=== PATIENT | female | born 1985 | race Caucasian/White ===

== ENCOUNTER 2017-06-06 09:45 | Emergency (ER) | payer OTHER ==
[~2017-06-06] VITALS: Ht 170.2 cm; Wt 90.7 kg
[2017-06-06] MEDS ORDERED: PANTOPRAZOLE SO40 MG PO (12:16)
[2017-06-06] MEDS ORDERED: CLONIDINE HCL0.1 MG PO (12:16)
[2017-06-06] MEDS ORDERED: CHLORDIAZEPOXID25 MG PO (12:16)
== END 2017-06-06 12:40 | disposition home or self-care (01) ==
LOC: ED 09:45
DX: K29.20 Alcoholic gastritis without bleeding (principal); F10.10 Alcohol abuse, uncomplicated; I10 Essential (primary) hypertension; F17.200 Nicotine dependence, unspecified, uncomplicated; Z88.5 Allergy status to narcotic agent
CPT/HCPCS: 80053; 83690; 84703; 85025; 96374; 96375; 99284; G0480; J1885; J2060; J3411; J7030; J7042

== ENCOUNTER 2017-07-12 19:59 | Emergency (ER) | payer OTHER ==
[~2017-07-12] VITALS: Ht 170.2 cm; Wt 90.7 kg
[~2017-07-12 19:59] MED LIST: CHLORDIAZEPOXID25 MG PO; CLONIDINE HCL0.1 MG PO; PANTOPRAZOLE SO40 MG PO
== END 2017-07-12 23:33 | disposition home or self-care (01) ==
LOC: ED 19:59
DX: R56.9 Unspecified convulsions (principal); F10.10 Alcohol abuse, uncomplicated; Y90.1 Blood alcohol level of 20-39 mg/100 ml; F17.200 Nicotine dependence, unspecified, uncomplicated; Z98.84 Bariatric surgery status; Z88.5 Allergy status to narcotic agent; Z79.899 Other long term (current) drug therapy
CPT/HCPCS: 70450; 80053; 81001; 84703; 85025; 99284; G0480

== ENCOUNTER 2018-11-30 12:55 | Emergency (ER) | payer OTHER ==
[~2018-11-30] VITALS: Ht 170.2 cm; Wt 104.3 kg
--- OUTSIDE RECORDS SUMMARY | ~2018-11-30 | XMS | Clinical Summary ---
Demographics + + + | Address | [address] | | | [place] [address] | + + + | Home Phone | | + + + | Preferred Language | Unknown | + + + | Marital Status | Single | + + + | Anabaptism Affiliation | Unknown | + + + | Race | Unknown | + + + | Ethnic Group | Unknown | + + + Author + + + | Author | [facility] | + + + | Organization | [facility] | + + + | Address | Unknown | + + + | Phone | Unavailable | + + + Care Team Providers + +------+ + | Care Pipe Turner Name | Role | Phone | + +------+ + PP | Unavailable | + +------+ + Allergies Not on File Current Medications Not on file Active Problems Not on file Social History + +-------+ +--------+------+ | Tobacco Use | Types | Packs/Day | Years | Date | | | | | Used | | + +-------+ +--------+------+ | Never Assessed | | | | | + +-------+ +--------+------+ + + + | Sex Assigned at | Date Recorded | | | | + + + | Not on file | | + + + Plan of Treatment + + + + + | Health Maintenance | Due Date | Last Done | Comments | + + + + + | Vaccine: | | | | | Dtap/Tdap/Td (1 - | 4 | | | | Tdap) | | | | + + + + + | Cervical Cancer | | | | | Screening (Pap) | 5 | | | + + + + + | Vaccine: Influenza | | | | | (Season Ended) | 9 | | | + + + + + Results Not on filefrom Last 3 Months Insurance + +--------+ +------+-------+ + | Payer | Benefi | Subscriber | Type | Phone | Address | | | t Plan | ID | | | | | | / | | | | | | | Group | | | | | + +--------+ +------+-------+ + | MEDICAID | [employer] | [id number] | | | [address] | | | N | | | | [place] | | | [place] | | | | [phone] | | | 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
--- OUTSIDE RECORDS SUMMARY | ~2018-11-30 | XMS | Clinical Summary ---
Demographics + + + | Address | [address] | | | [place] [address] | + + + | Home Phone | | + + + | Preferred Language | Unknown | + + + | Marital Status | Single | + + + | Temple Affiliation | Unknown | + + + | Race | Unknown | + + + | Ethnic Group | Unknown | + + + Author + + + | Author | [facility] | + + + | Organization | [facility] | + + + | Address | Unknown | + + + | Phone | Unavailable | + + + Care Team Providers + +------+ + | Care Time Study Clerk Name | Role | Phone | + [...] +------+-------+ + | MEDICAID | [employer] | [id number] | | | [address] | | | N | | | | [place] | | | [place] | | | | [phone] | | | 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
[2018-11-30] MEDS ORDERED: LEVOTHYROXINE100 MCG PO (15:05)
[2018-11-30] MEDS ORDERED: VITAMIN B-12100 MCG PO (15:06)
[2018-11-30] MEDS ORDERED: VERAPAMIL ER P100 MG PO (15:07)
[2018-11-30] MEDS ORDERED: KEPPRA500 MG PO (15:50)
== END 2018-11-30 16:00 | disposition home or self-care (01) ==
LOC: ED 12:55
DX: R56.9 Unspecified convulsions (principal); K72.90 Hepatic failure, unspecified without coma; I10 Essential (primary) hypertension; F17.200 Nicotine dependence, unspecified, uncomplicated; Z98.84 Bariatric surgery status; Z88.5 Allergy status to narcotic agent; Z79.899 Other long term (current) drug therapy
CPT/HCPCS: 99284

== ENCOUNTER 2019-03-30 12:06 | Emergency (ER) | payer OTHER ==
[~2019-03-30] VITALS: Ht 167.6 cm; Wt 99.8 kg
[~2019-03-30 12:06] MED LIST changes: +KEPPRA500 MG PO; +LEVOTHYROXINE100 MCG PO; +VERAPAMIL ER P100 MG PO; +VITAMIN B-12100 MCG PO
[2019-03-30] MEDS ORDERED: NORCO 7.5-3251 EACH PO (15:11)
[2019-03-30] MEDS ORDERED: ONDANSETRON ODT8 MG PO (15:11)
[2019-03-30] MEDS ORDERED: CLEOCIN HCL300 MG PO (15:11)
== END 2019-03-30 15:31 | disposition home or self-care (01) ==
LOC: ED 12:06
DX: L03.211 Cellulitis of face (principal); I10 Essential (primary) hypertension; F17.200 Nicotine dependence, unspecified, uncomplicated; Z88.5 Allergy status to narcotic agent; Z91.018 Allergy to other foods; Z79.899 Other long term (current) drug therapy
CPT/HCPCS: 70487; 80053; 84703; 85025; 99284-25; J1170; J1885; J3490; J7040; Q9967

== ENCOUNTER 2021-04-23 16:38 | Inpatient (IN) | payer BC ==
[~2021-04-23] VITALS: Ht 167.6 cm; Wt 94.8 kg
[~2021-04-23 16:38] MED LIST changes: +CLEOCIN HCL300 MG PO; +NORCO 7.5-3251 EACH PO; +ONDANSETRON ODT8 MG PO
[2021-04-23] MEDS ORDERED: LISINOPRIL2.5 MG PO (18:04)
--- NOTE | 2021-04-23 22:15 | NUR ---
REPORT RECEIVED FROM MUNIRA RAE ABOUT PATIENT PRIOR TO HER COMING FROM ER.
--- NOTE | 2021-04-23 23:33 | NUR ---
PT REQUESTING PAIN MED FOR HER ABDOMINAL AND BACK PAIN, 03/09 DENIES NAUSEA. MEDICATED WITH DILAUDID 0.5 MG IV
--- NOTE | 2021-04-24 00:05 | NUR ---
PT'S HERE AT BEDSIDE. HE IS TAKING PATIENT'S MEDICATIONS AND OTHER BELONGINGS HOME. PT REPORTING HER ABDOMINAL PAIN "SOMEWHAT" IMPROVED. STARTED ADDITIONAL IV TO PATIEN'T LEFT HAND, 20 G X 1 ATTEMPT. REMINDED PATIENT SHE IS NPO ONLY SIPS WITH ORAL MEDS AND MOUTH SWABS. VERBALIZED UNDERSTANDING. CALL LIGHT IN REACH. WATCHING TV.
--- NOTE | 2021-04-24 01:06 | NUR ---
ANSWERED PATIENT'S CALL LIGHT SHE NEEDS TO VOID. SHE AMBULATED TO RESTROOM ON HER OWN, VOIDED 900 ML DARK FROTHY URINE. PATIENT BACK TO BE NOTICE HER HANDS ARE SHAKING MORE THAN THEY HAVE ALSO REPORTING HER HEADACHE HAS GOTTEN WORSE. MEDICATED PATIENT WITH 2 MG ATIVAN IV, SEE EMAR FOR CIWA PROTOCOL. PATIENT IS DENYING FEELING NAUSEATED BUT STATES "THIS IS USUALLY WHEN I WOULD HAVE A DRINK"
--- NOTE | 2021-04-24 01:35 | NUR ---
pt not exhibiting any tremors at this time but is asking for more pain meds for her abdominal pain 01/07. some nausea. medicated with zofran 4mg IV and dilaudid 1 mg IV. no other needs at this time. Spouse remains at bedside.
--- NOTE | 2021-04-24 02:26 | NUR ---
PT APPEARS TO BE RESTING, LAYING ON HER RIGHT SIDE. SPOUSE AT BEDSIDE. CAN SEE NO VISIBLE TREMORS.
--- NOTE | 2021-04-24 03:53 | NUR ---
PATIENT ASSESSMENT COMPLETE. PATIENT STATING HER ABDOMINAL PAIN HAS COME BACK TO A "6" DENIES NAUSEA AT THIS TIME. MEDICATED PATIENT WITH DILAUDID 1 MG IV. LR AT 200ML/HR COMPLETE NEW BAG HUNG AT 150ML/HR. SPOUSE STILL IN ROOM. CALL LIGHT IN REACH. REINFORCED NEED TO STAY NPO AT THIS TIME EXCEPT FOR ORAL SWABS OR SIPS WITH ORAL MEDS ONLY AT THIS TIME. NO TREMORS NOTED, IMPROVED HEADACHE. PT PLAYING ON HER PHONE.
--- NOTE | 2021-04-24 05:36 | NUR ---
pt REQUESTED PRN PAIN MEDICATION FOR 02/06. GIVEN (SEE MAR). pt REQUESTED SOMETHING TO DRINK EDUCATION DONE ON TREATMENT PLAN. CALL LIGHT WITHIN REACH.
--- NOTE | 2021-04-24 06:55 | NUR ---
CALL LIGHT ON. pt UP TO VOID AND BACK TO BED. 1PA, VERY SHAKY. CALL LIGHT WITHIN REACH. UNMEASURED VOID, DARK YELLOW URINE
--- NOTE | 2021-04-24 07:00 | NUR ---
REPORT RECEIVED. PT LYING IN BED WITH AT BEDSIDE. CALL LIGHT IN REACH.
[2021-04-24] MEDS ORDERED: LISINOPRIL-HCT1 EACH PO (10:07)
[2021-04-24] MEDS ORDERED: VERAPAMIL ER120 M1 PO (10:08)
[2021-04-24] MEDS ORDERED: LEVOTHYROXINE137 MCG PO (10:08)
[2021-04-24] MEDS ORDERED: IRON325 M1 PO (10:31)
[2021-04-24] MEDS ORDERED: POTASSIUM GLUCO99 MG PO (10:31)
--- NOTE | 2021-04-24 10:31 | NUR ---
MED REC COMPLETE
--- NOTE | 2021-04-24 11:04 | NUR ---
ASSESSMENT COMPLETED AND MEDICATIONS GIVEN. CIWA OF 15 AT THIS TIME. 2 MG ATIVAN ADMINSTERED. PT REPORTS PAIN IN ABDOMEN OF 6/10 AND REQUEST PAIN MEDICATION. 1MG DILAUDID GIVEN. BOWEL TONES HYPOACTIVE. PAIN IS IN RUQ AND RADIATING. LUNGS CLEAR. PT IS NPO SIP OF WATER PROVIDED WITH MEDICAITON.
--- NOTE | 2021-04-24 11:31 | NUR ---
AMBULATED TO BATHROOM. VOIDED 100ML. BACK TO BED. WANTING TO EAT FOOD. PAIN WELL MANAGED. CALL LIGHT IN REACH.
--- NOTE | 2021-04-24 12:40 | NUR ---
PT ANXIOUS IN ROOM AND REPORTING PAIN. CIWA IS 14. 2MG IV ATIVAN AND ORAL OXYCODONE ADMISNTERED. PT SITTING IN BED NOW.
--- NOTE | 2021-04-24 14:25 | NUR ---
PT REQUESTING WALK. AMBULATED IN CCU UNIT FROM ONE END TO OTHER. PT REPORTING ANXIETY AND WANTS TO LEAVE. EXPRESSES DESIRE TO LEAVE TODAY. SAYS SHE HOPES HER COMES TO TAKE HER HOME. DISCUSSED WITH PT REASONS SHE DOESN'T WANT TO STAY. SHE FEELS SHE CAN MANAGE THIS AT HOME. EDUCATION ON PLAN OF CARE AND REASON FOR ADMISSION DONE WITH PT. PT REPORTS NEED TO STAY ADMITTED NOW AND IS AGREEABLE TO TREATMENTS AND PLAN OF CARE. CIWA AT 15 AT THIS TIME. INCREASED ATIVAN TO 3MG. PT DRINGING CLEARS AND TOLERATING WELL W/O INCREASE IN PAIN OR NAUSEA.
--- NOTE | 2021-04-24 16:30 | NUR ---
ASSESSMENT DONE. CONTINUES TO C/O PAIN IN LOWER ABD. UP TO BR TO VOID CONCENTRATED URINE. PATIENT MISSED THE MEASURING DEVICE WHEN UPON VOIDING.
--- NOTE | 2021-04-24 16:50 | NUR ---
LR BOLUS OF 500 ML OVER ONE HOUR INFUSING.
--- NOTE | 2021-04-24 17:00 | NUR ---
LAB CALLED WITH GRAM NEGATIVE RODS IN BLOOD CULTURES. DR LANDA CALLED AND NOTIFIED. ORDERS TO START ZOSYN 3.375 Q8H AND RE-DRAW BLOOD CULTURES IN THE MORNING. NOTIFIED ALSO OF LOW URINE OUTPUT. ORDERS TO ADMISNTER 500ML LR BOLUS OVER ONE HOUR.
--- NOTE | 2021-04-24 17:20 | NUR ---
dilaudid 1 mg iv given for pain in lower abd and headache. paittient educated on abx. is anxious and tearful
--- NOTE | 2021-04-24 17:35 | NUR ---
ATIVAN 4 MG PO GIVEN FOR INCREASED ANXIETY. REMAINS TEARFUL. SOMEWHAT SHAKEY. IS IN ROOM.
--- NOTE | 2021-04-24 18:11 | NUR ---
LR BOLU OF 500 ML COMPLETED.
--- NOTE | 2021-04-24 18:39 | NUR ---
PT SLEEPING IN BED. AT BEDSIDE.
--- NOTE | 2021-04-24 19:24 | NUR ---
RECEIVED REPORT FROM DAYSHIFT NURSES ABOUT PTIENT. SHE HAS HAD INCRREASED CIWA SCORES TODAY AND HAS RECEIVED ATIVAN MULTIPLE DOSES, AND DILAUDID FOR PAIN. NO NAUSEA, UPGRADED TO CLEAR LIQUID DIET, HAS BEEN DRINKING PO FLUIDS WELL. HAD AN UNMEASURED VOID PER DAYSHIFT AND 100 ML THIS AM. PT RESTING ON BED ASKING FOR SADA.
--- NOTE | 2021-04-24 20:23 | NUR ---
PATIENT ASSESSMENT COMLPETE. CIWA SCORE COMPLETE. PATIENT CONTINUES TO RATE HER ABDOMINAL PAIN ABOUT A "6" DENIES NAUSEA AT THIS TIME. PATIENT MEDICATED WITH ADDITIONAL DILAUDID AND MORE PO ATIVAN, CONTINUES TO REPORT A "NAGGING" HEADACHE AND " STARTLING" DREAMS WHEN FALLING ASLEEP. SPOUSE AT BEDSIDE. ENCOURAGE PT TO TAKE SIPS OF WATER. PT ATE TWO JELLOS.
--- NOTE | 2021-04-24 22:00 | NUR ---
CHECKED ON PATIENT. STARTED HER ZOSYN. PT IS ASLEEP LAYING ON HER LEFT SIDE HED OF BED ABOUT 45 DEGREES. HUSNABND AT BEDSIDE. NO VISIBLE OR PALPABLE TREMORS NOTED, RESPIRATINS EVEN UNLABORED SATS > 93% ON RA.
--- NOTE | 2021-04-25 00:13 | NUR ---
ANSWERED PT CALL LIGHT. PT NEEDED TO USE TOILET, STANDY ASSISTED PATIENT TO TOILET. SHE VOIDED LARGE AMOUNT OF DARK URINE. PATIENT HAS NO VISIBLE SHAKES BUT STATES SHE "CAN FEEL THEM" CONTUNUES TO HAVE SAME HEADACHE. PATIENT IS BACK IN BED CALL LIGHT IN REACH. SPOUSE HAS GONE HOME. MAINTEANCE FLUIDS AND ZOSYN INFUSING. PT GIVEN MORE BEEF BROTH PER HER REQUEST.
--- NOTE | 2021-04-25 00:26 | NUR ---
PATIENT ASSESSMENT COMPLETE. PT HAS BEEN GIVEN CUP OF BROTH PER HER REQUEST. PT GIVEN 1 MG ATIVAN PO CIWA SCORE 8. MEDICATED WITH 1 MG DILAUDID FOR HER ONGOING UPPER ABDOMINAL AREA PAIN. DENIES ANY OTHER NEEDS OR REQUESTS AT THIS TIME. CALL LIGHT IS IN REACH. REINFORCED TO PATIENT TO USE CALL LIGHT IF SHE NEEDS ANYTHING AND NOT TO GET UP OF BED WITHOUT STAFF IN THERE FOR STANDBY ASSIST. VERBALIZED UNDERSTANDING.
--- NOTE | 2021-04-25 01:44 | NUR ---
ROUNDED ON pt. RESTING IN BED WITH EYES CLOSED, RESPIRATIONS REGULAR RATE 18. O2 SAT 97%. CALL LIGHT WITHIN REACH.
--- NOTE | 2021-04-25 06:30 | NUR ---
IN ROOM TO CHECK ON PT AND START HER ZOSYN, SHE NEED ED TO GET UP TO VOID. PT AMBULATED TO TOILET WITH SBA ONLY, PT'S HR WENT UP TO THE 110'S. PT IS ALSO REPORTING HER NAUSEA HAS COME BACK AND HER ABDOMINAL PAIN IS WORSE, HEADACHE STILL ABOUT THE SAME. PT HAS BEEN SIPPING FLUIDS NO EMESIS. VOIDED 600 ML FROTHY DARK URINE. PT MEDICATED FOR HER PAIN AND NAUSE WELL FOR HER CIWA, SEE EMAR.
--- NOTE | 2021-04-25 07:55 | NUR ---
INTO PT ROOM. PT IS AWAKE AND ALERT. PT REQUESTS ATIVAN FOR ANXIETY. PT STATES THAT SHE WANTS TO GO HOME SOON POSSIBLE. EDUCATED PT ON IMPORTANCE OF FOLLOWING 'S ADVICE FOR MEDICAL MANAGEMENT. PT IS WILLING TO LISTEN TO THIS, BUT REMAINS ADIMANT ABOUT GOING HOME. VITALS ARE WNL, PT IS 98% ON 1L O2 VIA NASAL CANULA WITH ONLY ONE PRONG IN HER NARE. PT THEN PLACED ON ROOM AIR, O2 SATS REMAIN 95% OR BETTER.
--- NOTE | 2021-04-25 08:25 | NUR ---
LAB IN THE ROOM TO DRAW SECOND SET OF BLOOD CULTURES. PT IS CALM AND COOPERATIVE. 4 MG PO ATIVAN GIVEN FOR REPORTED ANXIEY. PT IS ABLE TO EASILY SWALLOW PO MEDS. PT UP OUT OF BED AND AMBULATES TO THE BATHROOM WITH STANDBY ASSIST, THEN IS ABLE TO BRUSH OWN TEETH AND WASH FACE INDEPENDENTLY. ALL LINENS CHANGED ON THE BED. PT OUT OF BATH ROOM AND SITTING UP IN THE CHAIR FOR CLEAR LIQUID BREAKFAST.
--- NOTE | 2021-04-25 10:25 | NUR ---
pt up and ambulated to the bathroom, slightly unsteady with activity, standby assist. pt voids small amount 125 ml, then back to bed. pt reports that her anxiety is tollerable at this time. pt denies need for pain medication at this time.
--- NOTE | 2021-04-25 14:55 | NUR ---
pt up and out of bed on her own, voided into the garbage can, and leaked large amount onto the floor and on her socks and underwear. this rn entered the room to find her standing and holding on to the shink, pt states "i had to go pee". assisted pt back to bed as she is very shaky on her feet. assisted pt to clean up, clean pull up attend in place. bed alarm is now on the pt. pt is cooperative and polite.
--- NOTE | 2021-04-25 19:09 | NUR ---
PT CIWA SCORES HAVE BEEN SLOWLY ELEVATING THROUGHOUT THE SHIFT, LAST CIWA IS 21. PT REMAINS COOPERATIVE AND POLITE, REPORTS HEARING VOICES AND FEELS LIKE BUGS ARE CRAWLING ON HER SKIN. PT ASKS THROUGH OUT THE DAY IF SHE CAN GO HOME, PT QUICKLY FORGETS THE PLAN OF CARE, FREQUENT REMINDERS GIVEN. PT IS DISORIENTED TO TIME. ALL VITALS WNL EXCEPT FOR ELEVATED BP, AND ELEVATED HR WITH AMBULATION. PT SPOUSE IS AT THE BEDSIDE SINCE 1835 TO EAT DINNER WITH HER. PT NOT ABLE TO RELAX OR STOP FIDGETING IN HER BED. PT FORGETS TO CALL FOR HELP TO GET UP OUT OF BED, BED ALARM HAS BEEN ON SINCE ABOUT 1345. SPEECH HAS BECOME MORE AND MORE DIFFICULT TO UNDERSTAND, AND PT SOMETIMES USES INAPROPRIATE WORDS. BOTH IV SITES REMAIN INTACT, FLUSH EASILY, PT DENIES PAIN AT EITHER SITE. PT DENIES CHEST PAIN AND SOB ALL SHIFT.
--- NOTE | 2021-04-25 19:42 | NUR ---
RECEIVED REPORT FROM DAY SHIFT NURSES. PATIENT HAD A GOOD MORNING BUT TOWARD AFTERNOON WAS ANXIOUS AND WANTING TO GO HOME, HER CIWA SCORES INCREASE IN AFTERNOON, ACTED SLIGHTLY CONFUSE WITH HER WORSE, SHE WAS GIVEN PO AND IV ATIVAN 4MG EACH X TIMES. PATIENT AT SHIFT CHANGE APPEARS MORE RELAXED, EXHIBITS PLEASANT DEMEANOR AND IS WATCHIING TV WITH SPOUSE.
--- NOTE | 2021-04-25 21:14 | NUR ---
pt was in a deep sleep when this rn went in to give her Keppra and the benadryl she requested for sleep. pt was not waking up to verbal commands, had to push on her with painful stimuli, then she wakes up and is wanting out of bed mumbling incomprehensible. pt instructed to stay in bed. benadryl and melatonin not given. pt's in room
--- NOTE | 2021-04-25 21:31 | NUR ---
PT AWAKE REQUESTING TO VOID HAVE TO REINFORCE TO PT SHE IS NOT TO GET OUT OF BED WITHOUT ASSISTANCE. PT AMBULATED TO TOILET WITH STANDBY ASSIST A LITTLE UNSTEADY GAIT BUT PATIENT VOIDED 650 ML WENT BACK TO BED. AT BEDSIDE
--- NOTE | 2021-04-25 21:44 | NUR ---
PT AWAKE AND HAS DECIDED SHE WOULD LIKE TO TAKE THE BENADRYL AND MELATONIN. PT'S ZOSYN STARTED. ALSO PT IS WEATY AND FEELS SHAKEY 2 MG ATIVAN GIVEN IV.
--- NOTE | 2021-04-26 00:08 | NUR ---
ANSWERED CALL LIGHT. PATIENT NEEDED TO VOID. STANDBY ASSIST FOR PATIENT TO AMBULATE WITH SLIGHTLY UNSTEADY GAIT TO BATHROOM. VOIDED 350 ML. BACK TO BED PT IS REPORTING HER HEADACHE IS "THE SAME" AND "SLIGHT" NUASEA" PT FEELS A LITTLE CLAMMY. PATIENT IS MUMBLING ABOUT THE "PLAN FOR THE DAY" AND IS APPEARING SOMEWHAT RESTLESS IN THE BED. SHE IS STATING "I SHOULD HAVE BEEN ASLEEP" PATIENT HAS BEEN GIVEN BENADRYL, MELATON, ATIVAN. CIWA 13 PT MEDICATED WITH ATIVAN 4MG IV.
--- NOTE | 2021-04-26 01:04 | NUR ---
PT GIVEN 4MG IV ATIVAN, 4MG PO ATIVAN CIWA 14. PT APPEARS TO BE GETTING MORE RESTLESS. CIWA 14
--- NOTE | 2021-04-26 01:16 | NUR ---
PT ASSESSMENT COMPLETE. PATIENT HAS BEEN MEDICATED WITH ADDITIONAL PPO AND IV ATIVAN FOR HER WITHDRAWL SYMPTOMS. PATIENT FRUSTRATED SHE STATES "I WANT TO GO HOME" "NEED TO GO HOME" NO LONGER IN ROOM. PT INFORMED SHE IS NOT IN ANY CONDITION TO GO HOME AND THEY WILL UPDATE HER PLAN OF CARE LATER TODAY, ENCOURAGED TO SLEEP..
--- NOTE | 2021-04-26 02:04 | NUR ---
MAGEN RN IN ROOM TO TOILET PT. SHE VOIDED 200 ML IN TOILET WITH HAT AND AMBULATED BACK TO BED, WHEN IV WAS HOOKED BACK UP IT WAS NOTED PT HAD PUFFY LEFT HAND, IV SITE ASSESSED TO LEFT HAND AND IT WILL NOT FLUSH APPEARS INFILTRATED. IV REMOVED TIP INTACT BY MAGEN RN. REMOVED SEVERAL FASHION BRACELETS FROM PATIENT'S LEFT FOREARM DUE TO CONSTRICTION AND 3 RINGS FROM HER LEFT HAND. PLACED IN HER PURSE IN SPEC CUP. PT IS MOVING ALL HER DIGITS TO HER LEFT HAND SKIN IS WARM TO TOUCH CAP REFILL < 2 SECONDS TO NAIL BEDS. ELEVATED LEFT HAND ON PILLOW AND WARM BLANKET APPLIED TO SITE. IV ZOSYN SWITCHED TO LEFT AC IV.
--- NOTE | 2021-04-26 02:47 | NUR ---
PT NEEDING TO VOID GOT OUT OF BED HERSELF REINFORCED TO PT SHE NEEDS TO USE CALL LIGHT. PT VOIDED 120 ML URINE IN HAT.
--- NOTE | 2021-04-26 04:39 | NUR ---
PATIENT PROVIDED WITH PRN PAIN MEDS PER REQUEST AND ATIVAN PER PROTOCAL. PATIENT REPORTS 9/10 PAIN IN HER ABD.
--- NOTE | 2021-04-26 05:40 | NUR ---
IN TO START A NEW IV. pt WOKE TO VOICE. NEW IV STARTED, LABS DRAWN. WITH pt's PERMISSION CUT PERSONAL BRACELET ON LEFT WRIST IT WOULD NOT COME OFF OVER HAND AND WAS DIGGING INTO SKIN. NO REQUESTS AT THIS TIME. CALL LIGHT WITHIN REACH.
--- NOTE | 2021-04-26 07:59 | NUR ---
REPORT RECEIVED FROM NIGHTSHIFT RN, WILL CONTINUE PLAN OF CARE.
--- NOTE | 2021-04-26 08:14 | NUR ---
PATIENT ATEMPTING TO GET OUT OF BED ALONE, THIS COMMERCIAL SALES REPRESENTATIVE IN TO REDIRECT. PATIENT DISORIENTED TO PLACE INITIALLY, CLEARED AFTER A FEW MINUTES. 1PA TO BSC AND BACK TO BED. BREAKFAST ORDERED, 2CUPS OF FRESH ICE WTAER PROVIDED. RN IN ROOM. CALL LIGHT AND PERSONAL ITEMS IN REACH
--- NOTE | 2021-04-26 08:46 | NUR ---
THIS RN IN TO ASSESS PT AND ADMINISTER SCHEDULED MEDICATIONS. PT ALERT AND ORIENTED TO SELF, EVENT, LOCATION, BUT NOT MONTH. SCHEDULED MEDICATIONS ADMINISTERED AT THIS TIME (SEE SEP). PT CIWA WAS 8 AT THIS TIME FOR TREMBLING HANDS, NAUSEA, HEADACHE, AND NOT BEING ORIENTED TO MONTH, PRN ATIVAN ADMINISTERED (SEE SEP) ALONG WITH PRN OXYCODONE FOR HER HEADACHE AND ABDOMINAL PAIN 01/07 AND ZOFRAN FOR HER NAUSEA. IV ABX STILL INFUSING AT THIS TIME. RT IN AT THIS TIME TO ASSESS PT, THIS RN ASSESSED PT AFTERWARDS, BOWEL TONES ACTIVE, LUNGS CLEAR, RADIAL AND PEDAL PULSES STRONG. PT REPORTS NO FURTHER NEEDS AT THIS TIME AND IS EATING BREAKFAST NOW, WILL CONTINUE PLAN OF CARE. CALL LIGHT IN REACH, BED IN LOWEST POSITION.
--- NOTE | 2021-04-26 09:35 | NUR ---
THIS RN IN TO CHECK ON PT. PT EATING BREAKFAST AT THIS TIME. PT REPORTS HER ABDOMINAL PAIN, HEADACHE, AND NAUSEA HAVE RESOLVED AT THIS TIME. PT REPORTS NO NEEDS AT THIS TIME WHEN ASKED, IV STILL INFUSING AT THIS TIME. WILL CONTINUE PLAN OF CARE. CALL LIGHT IN REACH, BED IN LOWEST POSITION.
--- NOTE | 2021-04-26 09:55 | NUR ---
REPORT RECIEVED FROM BUTCH WALLACE.
--- NOTE | 2021-04-26 10:05 | NUR ---
REPORT GIVEN TO BUTCH TORREZ AT 0951. DR LANDA IN TO ASSESS PT AND UPDATE ON PLAN OF CARE DURING THIS TIME. PT INFORMED ON TRANSFER AFTERWARDS. PT AWAKE AND ALERT IN BED, IV ABX INFUSING. BUTCH TORREZ IN TO ASSIST WITH TRANSFER, PT ABLE TO GET UP AND ONTO BEDSIDE RECLINER WITHOUT DIFFICULTY. PT WAS TRANSFERRED TO ROOM 121 ALONG WITH HER BELONGINGS AT 1005. PT NOW IN MS 121, BUTCH TORREZ IN ROOM TO CONTINUE PLAN OF CARE.
--- NOTE | 2021-04-26 10:08 | NUR ---
Patient transferred to m/s via recliner, patient holding purse and personal belongings.
--- NOTE | 2021-04-26 10:43 | NUR ---
PATIENT MOVED FROM CCU AT 1000. PATIENT IS ORIENTED X3, ENDORSES HAVE ANXIETY AND GIVEN 4MG OF PO ATIVAN ALONG WITH KCL REPLACEMENT. PATIENT DENIES PAIN AT THIS TIME, HAS ORDERED LUNCH AND IS TALKING ON HER CELL PHONE. PATIENT IS SALINE LOCKED.
--- NOTE | 2021-04-26 11:57 | NUR ---
PATIENT IS RESTING IN BED, VISABLE LESS SHAKEY, IS WATCHING TV AND EATING IN BED.
--- NOTE | 2021-04-26 13:30 | NUR ---
PATIENT IS IN BED AND SLEEPING WITH REGULAR RESPIRATIONS.
--- NOTE | 2021-04-26 15:03 | NUR ---
PATIENT IS RESTING IN BED, HAVING ANXIETY AND VERBALIZES THE NEED FOR ANXIETY MEDICATION. MILD/MODERATE HAND TREMORS, SOME SLIGHT CONFUSION, PATIENT IS OTHERWISE ORIENTED AND REPORTS HER IS BRINGING HER DINNER TONIGHT. PATIENT CONTINUES TO DENY PAIN. IV ZOSYN INFUSING FOR 4 HOURS.
--- NOTE | 2021-04-26 17:46 | NUR ---
PATIENT HAS DONE WELL WITH SOLID FOOD TODAY, TAKING ORAL ATIVAN AND PO PAIN MEDICATIONS. PATIENT IS A STANDBY ASSIST TO BATHROOM. IV ZOSYN FOR ECOLI UTI. IN ROOM WITH PATIENT AND WATCHING TV.
--- NOTE | 2021-04-26 17:49 | NUR ---
Patient vitals, I&Os are complete. Visitor is in room. Patient talked with RN.
--- NOTE | 2021-04-26 19:30 | NUR ---
IV ANTIBIOTIC COMPLETE. REPORT RECEIVED FROM BUTCH TORREZ. pt ANXIOUS, REQUESTING TO LEAVE. DISCUSSED CARE PLAN. pt AGREEABLE TO STAY NIGHT FOR MEDICATIONS, ANTIBIOTICS. CALL LIGHT IN REACH.
--- NOTE | 2021-04-26 21:30 | NUR ---
PT OUT IN HALLWAY ASKING CLIMATE CHANGE ANALYST WHEN THE SOMEONE WAS GOING TO BE HERE SHE HAS BEEN "WAITING". PT REMINDED SHE IS STAYING THE NIGHT, SHE SAID SHE STAYED LAST NIGHT, REMINDED HER SHE WAS IN CCU, AND NOW ON THE MEDICAL FLOOR AND SHE WILL BE SEEN IN THE MORNING BY DR LANDA, AND HE WILL ADDRESS THE PLAN. SHE IS CONFUSED AND NOT REMEMBERING WHAT SHE HAS BEEN TOLD. MALE AT BEDSIDE, DID NOT OFFER ANY COMMUNICATION TO PT OR THIS RN THIS CONVERSATION CONTINUED.
--- NOTE | 2021-04-26 22:19 | NUR ---
pt SITTING UP AT SIDE OF BED. RATES PAIN 6/10 IN RIGHT UPPER ABD, DENIES NEED FOR PAIN MEDICATION "KEEP THAT BACK IF I CAN'T SLEEP". pt ANXIOUS REQUESTING TO LEAVE AFTER 4 HOUR ANTIBIOTIC INFUSION. EDUCATED pt ON PLAN OF CARE, NEXT SCHEDULED ANTIBIOTIC DOSE, pt AGAIN AGREEABLE TO HOSPITAL OVER NIGHT STAY. pt WITH MILD TREMORS, SOME VISUAL HALLUCINATIONS, ANXIETY, NOT ORIENTED TO DATE, EVENTS, CANNOT ADD SERIAL. REORIENTATION PROVIDED. PRN ATIVAN ADMINISTERED PO. IV SITES FLUSHED WNL, IV KEPPRA AND IV ANTIBIOTIC INFUSING ORDERED. VSS. ASSESSMENT COMPLETE. CIWA SCORE 7. CALL LIGHT IN REACH.
--- NOTE | 2021-04-27 00:14 | NUR ---
pt CALLING OUT, SBA TO RESTROOM FOR VOID AND BACK TO BED. UNMEASURED VOID, MISSED HAT. CALL LIGHT IN REACH. IV ANTIBIOTIC INFUSING WNL.
--- NOTE | 2021-04-27 02:30 | NUR ---
SAW PT OUT OF BED, MOVING IV POLE. ASKED PT IF SHE NEEDED HELP. GOING TO BATHROOM SHE SAID, NOTED LIQUID ON FLOOR, THOUGHT IT MAY HAVE BEEN HER IV, HOWEVER, IT WAS URINE, THE PT WAS URINATING ON THE FLOOR WHILE WALKING. PT WAS AWARE THIS WAS HAPPENING, ASSISTED PT TO SAFE AREA, PT ON TOILET, THIS RN CLEANNED UP FLOOR. ONCE BACK TO BED, PT WONDERED WHERE HER MALE FRIEND WAS, TOLD HER HE WENT HOME, AND SHE WAS STILL IN THE HOSPITAL. SHE WAS SURPRISED TO KNOW SHE WAS HERE. SAID SHE JUST WANTED TO SLEEP, WON'T YOU LET ME SLEEP. COVERED, BED ALARM PLACED FOR PT SAFETY.
--- NOTE | 2021-04-27 03:10 | NUR ---
pt BACK IN BED FROM RESTROOM. IV ANTIBIOTIC COMPLETE, SL WNL. CIWA SCORE 7. PRN ATIVAN ADMINISTERED. pt C/O 12/07 SOUZA. PRN TYLENOL ADMINISTERED. CALL LIGHT IN REACH. LIGHTS OFF IN ROOM.
--- NOTE | 2021-04-27 06:10 | NUR ---
pt SLEEPING, AWAKENS TO VOICE. IV ANTIBIOTIC INFUSING WNL ORDERED. pt COOPERATIVE, REQUESTING TO SLEEP. VS COMPLETE. DENIES ADDITIONAL NEEDS. EYES CLOSED, BREATHING UNLABORED. CALL LIGHT IN REACH. BED ALARM ON.
--- NOTE | 2021-04-27 07:27 | NUR ---
REPORT RECIEVED FROM BUTCH MEDINA.
--- NOTE | 2021-04-27 08:13 | NUR ---
Patient still sleeping. Updated white board. CHIEF DATA OFFICER will check back in on patient before breakfast.
--- NOTE | 2021-04-27 08:35 | NUR ---
PATIENT UP TO VOID TO BATHROOM, IMPROVED ON STEADY AMBULATION FROM YESTERDAY. PATIENT ABLE TO TELL ME DAY OF WEEK AND COUNT RELIABLY. MILD TREMOR IN HANDS, PATIENT EATS BREAKFAST, IS ALSO IMPROVED FROM YESTERDAY. PATIENT IS ASKING TO GO HOME TODAY, LET HER KNOW THAT THE DOCTOR WOULD BE IN TO SEE HER TO SEE IF SHE IS READY. PATIENT DENIES PAIN, HAS GOOD APPETITE.
--- NOTE | 2021-04-27 09:22 | NUR ---
MORNING MEDICATIONS GIVEN. PATIENT IS ORIENTED AND VISITING IN THE PHONE.
--- NOTE | 2021-04-27 09:37 | NUR ---
SPOKE WITH PATIENT IN ROOM. PATIENT ORIENTED. PATIENT LIVES WITH . DOES NOT DRIVE. IS EMPLOYED. WILL NEED CARERIDE HOME IF IT IS DURING HUSBANDS WORKING HOURS. ALSO FEELS SHE MAY NEED PAPERWORK FOR EMPLOYER. SHE DENIES USING ANY DME. HAS PCP AND PLANS TO F/U AND CONTINUE WITH HER. HAS TRANSPORTATION TO APPOINTMENTS. DOES NOT FEEL SHE IS AT RISK TO NOT BE ABLE TO PAY FOR MEDS/FOOD OR UTILITIES BEING SHUT OFF. DENIES CONCERNS AND FEELS SAFE TO RETURN HOME AT DISCHARGE. IS ASKING WHEN SHE WILL BE ABLE TO GO HOME, DISCUSSED THE DR WILL SEE HER AND THEY CAN DISCUSS. NO OTHER QUESTIONS. UPDATED STAFF SHE WILL NEED EMPLOYER NOTE AND CARERIDE.
--- NOTE | 2021-04-27 09:40 | NUR ---
Offered patient shower. Patient refused. BUTCH Arora notified.
--- NOTE | 2021-04-27 10:49 | NUR ---
PATIENT HAS COPY OF WORK RELEASE NOTE, INDICATED THAT HER BOSS HAS TAKEN HER OFF OF HER WORK SCHEDULE FOR THE REST OF THE WEEK.
--- NOTE | 2021-04-27 11:57 | NUR ---
PATIENT NOTIFIED THAT DR. LANDA WOULD BE IN TO SEE HER SOON.
--- NOTE | 2021-04-27 12:01 | NUR ---
DR. LANDA IN TO SEE PATIENT.
[2021-04-27] MEDS ORDERED: AUGMENTIN 875-1 EACH PO (12:06)
== END 2021-04-27 12:30 | disposition home or self-care (01) | DRG 439 ==
LOC: ED 16:38 → CCU 21:42 → MS 21:42
PROVIDERS: ADMIT Student in an Organized Health Care Education/Training Program; ATTEND Student in an Organized Health Care Education/Training Program
DX: K85.20 Alcohol induced acute pancreatitis without necrosis or infection (principal); F10.139 Alcohol abuse with withdrawal, unspecified; K86.2 Cyst of pancreas; F10.10 Alcohol abuse, uncomplicated; Z20.822 Contact with and (suspected) exposure to COVID-19; I10 Essential (primary) hypertension; F17.210 Nicotine dependence, cigarettes, uncomplicated; K76.9 Liver disease, unspecified; E03.9 Hypothyroidism, unspecified; K70.10 Alcoholic hepatitis without ascites; G40.909 Epilepsy, unspecified, not intractable, without status epilepticus; Z88.5 Allergy status to narcotic agent; Z91.018 Allergy to other foods; Z98.84 Bariatric surgery status
CPT/HCPCS: 74177; 80053; 81001; 83605; 83690; 83735; 84100; 84703; 85007; 85025; 85610; 87040; 87070; 87075; 87077; 87184; 87205; 94760; A9270-GY; C9113; C9803; J1170; J1650; J1953; J2060; J2405; J2543; J2550; J3411; J3475; J7030; J7121; Q9967; U0003

== ENCOUNTER 2021-08-05 19:35 | Emergency (ER) | payer BC ==
[~2021-08-05] VITALS: Ht 167.6 cm; Wt 102.1 kg
[~2021-08-05 19:35] MED LIST changes: +AUGMENTIN 875-1 EACH PO; +IRON325 M1 PO; +LEVOTHYROXINE137 MCG PO; +LISINOPRIL-HCT1 EACH PO; +LISINOPRIL2.5 MG PO; +POTASSIUM GLUCO99 MG PO; +VERAPAMIL ER120 M1 PO
== END 2021-08-06 00:35 | disposition home or self-care (01) ==
LOC: ED 19:35
DX: K70.10 Alcoholic hepatitis without ascites (principal); F10.20 Alcohol dependence, uncomplicated; Y90.8 Blood alcohol level of 240 mg/100 ml or more; I10 Essential (primary) hypertension; F17.200 Nicotine dependence, unspecified, uncomplicated; Z88.5 Allergy status to narcotic agent; Z91.018 Allergy to other foods; Z79.899 Other long term (current) drug therapy; Z79.890 Hormone replacement therapy
CPT/HCPCS: 74177; 80053; 81001; 83690; 84703; 85025; 99284-25; A9270; G0480; J3411; J7030; Q9967

== ENCOUNTER 2021-08-11 20:13 | Emergency (ER) | payer BC ==
[~2021-08-11] VITALS: Ht 152.4 cm; Wt 104.0 kg
--- OUTSIDE RECORDS SUMMARY | 2021-08-11 20:16 | XMS ---
PreManage Notification: JONA LOPEZ Security Loan Specialist Events No recent Security Events currently on file CRITERIA MET - [facility] - 2 Visits in 30 Days CARE PROVIDERS There are no care providers on record at this time. Kavin has no Care Guidelines for this patient. Jessica VISIT COUNT (12 MO.) 3 [facility] TOTAL 3 NOTE: Visits indicate total known visits. ED/[facility] VISIT TRACKING (12 MO.) 08[facility]11/2021 20:13 [facility] [place] [facility] Emergency COMPLAINT: - ALCOHOL WITHDRAWAL 08/05/2021 19:36 [facility] Gupta [place] TYPE: Emergency COMPLAINT: - ABDOMINAL PAIN DIAGNOSES: - Hormone replacement therapy - Nicotine dependence, unspecified, uncomplicated - Blood alcohol level of 240 mg/100 ml or more - Essential (primary) hypertension - Allergy status to narcotic agent - Alcoholic hepatitis without ascites - Allergy to other foods - Alcohol dependence, uncomplicated - Upper abdominal pain, unspecified - [facility] [place] [facility] ([facility] drug therapy 04/23/2021 16:38 [facility] Gupta [place] TYPE: Emergency COMPLAINT: - ABDOMINAL PAIN INPATIENT VISIT TRACKING (12 MO.) 04/23/2021 21:42 LENA Gupta [place] TYPE: Medical Surgical COMPLAINT: - PANCREATITIS/ ALCOHOL WITHDRAWAL DIAGNOSES: - Liver disease, unspecified - Nicotine dependence, cigarettes, uncomplicated - Alcohol abuse with withdrawal, unspecified - Allergy status to narcotic agent - Alcohol abuse, uncomplicated - Epilepsy, unspecified, not intractable, without status epilepticus - Alcohol abuse, uncomplicated - Allergy to other foods - Alcoholic hepatitis without ascites - Essential (primary) hypertension - Cyst of pancreas - Nicotine dependence, cigarettes, uncomplicated - Alcohol induced acute pancreatitis without necrosis or infection - Epilepsy, unspecified, not intractable, without status epilepticus - Allergy status to narcotic agent - Hypothyroidism, unspecified - Liver disease, unspecified - Hypothyroidism, unspecified - Cyst of pancreas - Essential (primary) hypertension - Bariatric surgery status - Allergy to other foods - Bariatric surgery status - Alcohol abuse with withdrawal, unspecified - Alcoholic hepatitis without ascites [email or web address]
[2021-08-12] MEDS ORDERED: ATIVAN1 MG PO (00:22)
== END 2021-08-12 00:50 | disposition home or self-care (01) ==
LOC: ED 20:13
DX: K70.10 Alcoholic hepatitis without ascites (principal); I10 Essential (primary) hypertension; F17.200 Nicotine dependence, unspecified, uncomplicated; Z91.018 Allergy to other foods; Z88.5 Allergy status to narcotic agent; Z79.899 Other long term (current) drug therapy; Z79.890 Hormone replacement therapy
CPT/HCPCS: 74177; 80053; 82977; 83690; 84703; 85025; 96375; 99285-25; J2060; J2405; Q9967

== ENCOUNTER 2021-09-08 07:50 | Emergency (ER) | payer BC ==
[~2021-09-08] VITALS: Ht 167.6 cm; Wt 102.5 kg
[~2021-09-08 07:50] MED LIST changes: +ATIVAN1 MG PO
--- OUTSIDE RECORDS SUMMARY | 2021-09-08 07:58 | XMS ---
PreManage Notification: JONA LOPEZ Security Community Worker Events No recent Security Events currently on file CRITERIA MET - [facility] - Has Care Guidelines - [facility] - 2 Visits in 30 Days CARE PROVIDERS IRAJ SANCHEZ Emergency Medicine 08/12/2021-Current PHONE: [phone] Kavin has no Care Guidelines for this patient. Care History Medical/Surgical 08/12/2021 [facility] CHColette Rebolledo is working with Keily at [facility] to get patient into detox/ rehab treatment. 08/12/2021 [facility] - Patient is currently established with [facility]. If patient is seen in the ED during business hours. Please contact CHWs at [facility]. Care Recommendation: If this patient has had 5 or more Emergency Department visits in the last 12 months.\T\nbsp; Patient will require education on the scope and purpose of the ED as an acute care provider not a Primary Care Provider and should not be utilized for chronic conditions.\T\nbsp; These are guidelines and the provider should exercise clinical judgment when providing care. E.D. VISIT COUNT (12 MO.) 4 LENA Nicole TOTAL 5 NOTE: Visits indicate total known visits. ED/UCC VISIT TRACKING (12 MO.) 09/08/2021 07:51 LENA Gupta [place] TYPE: Emergency COMPLAINT: - G-TUBE LEAKING 08/16/2021 14:37 [facility] TYPE: Emergency DIAGNOSES: 0. EMS ABDOMINAL PAIN 08/11/2021 20:13 [facility] Gupta [place] TYPE: Emergency COMPLAINT: - ALCOHOL WITHDRAWAL DIAGNOSES: - Weakness - Allergy to other foods - Other terminal supervisor (current) drug therapy - Alcoholic hepatitis without ascites - Nicotine dependence, unspecified, uncomplicated - Essential (primary) hypertension - Hormone replacement therapy - Allergy status to narcotic agent 08/05/2021 19:36 [facility] Gupta [place] TYPE: Emergency COMPLAINT: - ABDOMINAL PAIN DIAGNOSES: - Hormone replacement therapy - Nicotine dependence, unspecified, uncomplicated - Blood alcohol level of 240 mg/100 ml or more - Essential (primary) hypertension - Allergy status to narcotic agent - Alcoholic hepatitis without ascites - Allergy to other foods - Alcohol dependence, uncomplicated - Upper abdominal pain, unspecified - Other care home (current) drug therapy 04/23/2021 16:38 [facility] Gupta [place] TYPE: Emergency COMPLAINT: - ABDOMINAL PAIN INPATIENT VISIT TRACKING (12 MO.) 08/16/2021 22:39 [facility] TYPE: Family Practice DIAGNOSES: 0. ACUTE ELLIE 04/23/2021 21:[address] [facility] [place] TYPE: Medical Surgical COMPLAINT: - PANCREATITIS/ [...] withdrawal, unspecified - Alcoholic hepatitis without ascites [email or web address]
[2021-09-08] MEDS ORDERED: ONDANSETRON ODT4 MG PO (08:12)
[2021-09-08] MEDS ORDERED: GABAPENTIN300 MG PO (08:13)
== END 2021-09-08 10:09 | disposition home or self-care (01) ==
LOC: ED 07:50
DX: K94.23 Gastrostomy malfunction (principal); I10 Essential (primary) hypertension; F17.200 Nicotine dependence, unspecified, uncomplicated; Z91.018 Allergy to other foods; Z88.5 Allergy status to narcotic agent; Z79.899 Other long term (current) drug therapy
CPT/HCPCS: 36415; 74177; 80053; 80503; 83690; 84703; 85025; 85610; 96375; 99283-25; J2405; J3010; J3480; Q9967

== ENCOUNTER 2022-12-22 14:08 | Inpatient (IN) | payer BC ==
[~2022-12-22] VITALS: Ht 167.6 cm; Wt 101.4 kg
[~2022-12-22 14:08] MED LIST changes: +GABAPENTIN300 MG PO; +ONDANSETRON ODT4 MG PO
--- OUTSIDE RECORDS SUMMARY | 2022-12-22 14:10 | XMS ---
PreManage Notification: JONA LOPEZ Security Crotch Piece Baster Events No recent Security Events currently on file CRITERIA MET - [facility] - Has Care Guidelines CARE PROVIDERS IRAJ SANCHEZ Emergency Medicine 08/12/2021-Current PHONE: [phone] FAUSTO SOL Student in an Organized Health Care Current [employer] Education/Training Program PHONE: [phone] Kavin has no Care Guidelines for this patient. Care History Medical/Surgical 08/12/2021 [facility] CHW Shazia Rebolledo is working with Keily at [facility] to get patient into detox/ rehab treatment. 08/12/2021 [facility] - Patient is currently established with [facility]. If patient is seen in the ED during business hours. Please contact CHWs at [facility]. Care Recommendation: If this patient has had 5 or more Emergency Department visits in the last 12 months.\T\nbsp; Patient will require education on the scope and purpose of the ED as an acute care provider not a Primary Care Provider and should not be utilized for chronic conditions.\T\nbsp; These are guidelines and the provider should exercise clinical judgment when providing care. ERussel VISIT COUNT (12 MO.) 1 LENA Burciaga TOTAL 1 NOTE: Visits indicate total known visits. ED/UCC VISIT TRACKING (12 MO.) 12/22/2022 14:08 [facility] Gupta [place] TYPE: Emergency COMPLAINT: - SYNCOPE INPATIENT VISIT TRACKING (12 MO.) No inpatient visits to display in this time frame [email or web address]
[2022-12-22] MEDS ORDERED: HYDROXYZINE PAM50 MG PO (14:18)
[2022-12-22 18:43] VITALS: BP 101/76
[2022-12-22 19:00] VITALS: BP 95/74
--- NOTE | 2022-12-22 19:01 | NUR ---
PT ARRIVES TO CCU VIA STRETCHER BY ED RN SINDY. PT ALERT AND ORIENTED, TRANSFER TO BED FROM STRETCHER BY SELF AND MINIMAL ASSISTANCE. INITIAL VS STABLE, SINUS TACH. CIWA SCORE 16 ON ARRIVAL, PRN VALIUM ADMINISTERED. 4L 02 VIA NC PLACED TO MAINTAIN SPO2 WHILE SLEEPING. PT DISCLOSES SHE FEELS SAFE AT THIS TIME BUT HAS THOUGHT AND PLANNED TO KILL HERSELF RECENTLY EARLIER TODAY. REMAINS 1:1 OBS.
--- NOTE | 2022-12-22 19:30 | NUR ---
ASSUMED CARE OF THIS PT, SHE IS ON R SIDE IN BED RESTING WITH EYES CLOSED, HR 98, 02 98% 4 l NC, RR 12 - BEDSIDE SITTER NEXT TO PT. CALL LIGHT IN REACH.
[2022-12-22 20:00] VITALS: BP 102/76
--- NOTE | 2022-12-22 20:46 | NUR ---
pt hob up for po tracy - howard tao at bedside - pt denies needs or complaints, sleepy - slight nausea when awake yet falls asleep easily. call light in reach. report to Mi ahn who assume care.
[2022-12-22 21:00] VITALS: BP 98/70
--- NOTE | 2022-12-22 21:23 | EKG ---
[facility] [address] [place] [address] Signed Sinus tachycardia Nonspecific T wave abnormality Abnormal ECG When compared with ECG of 08-JAN-2017 18:34, Questionable change in QRS axis Nonspecific T wave abnormality now evident in Inferior leads T wave inversion now evident in Lateral leads Confirmed by VICENTA SCHAEFER MD ([id number]) on 12/22/2022 9:22:57 PM Electronically Signed By: VICENTA SCHAEFER MD 12/22/222122 PATIENT NAME: JONA LOPEZ SARY Electrocardiogram DATE OF : [birth year] PHYSICIAN: VICENTA SCHAEFER MD REPORT #: [id number] REPORT IS CONFIDENTIAL AND NOT TO BE RELEASED WITHOUT AUTHORIZATION
[2022-12-22 22:00] VITALS: BP 98/72
--- NOTE | 2022-12-22 22:45 | NUR ---
PATIENT REPORTS FEELING MORE ANXIOUS AND HAVING TREMORS. PRN VALIUM PROVIDED FOR CIWA > 8. PATIENT IS 1:1
[2022-12-22 23:00] VITALS: BP 100/88
[2022-12-23] VITALS (19 sets, daily range): BP systolic 106–126; BP diastolic 73–96
--- NOTE | 2022-12-23 00:15 | NUR ---
ASSISTED PATIENT UP TO THE BSC. PATIENT TOLERATED WELL. IS WEAK WITH TREMOR. PATIENT VOIDED 700 MLS OF DARK ORANGE URINE WITH STRONG ODOR. DENIES ANY DISCOMFORT WITH VOID. PATIENT RETURNED TO BED. PRN VALIUM PROVIDED FOR CIWA PROTOCOL. PATIENT REMAINS TO BE A 1:1
--- NOTE | 2022-12-23 00:54 | NUR ---
PATIENT REPORTS FEELING INCREASING ANXIETY WITH CHEST TIGHTNESS. HR UP TO 140-150'S AND PATIENT DRY HEAVING. PRN COMPAZINE AND VALUIM GIVEN WITHOUT SIGNIFICANT CHANGES. DISCUSSED WITH . PATIENT WILL RECEIVE PRN DILAUDID FOR PAIN AND TRIAL ON PRECEDEX DRIP IN ADDITION TO CURRENT THERAPY.
--- NOTE | 2022-12-23 01:15 | NUR ---
PATIENT PROVIDED PRN DILAUDID AND A SECOND IV SITE ESTABLISHED. PATIENT RESTING WITH HOB ELEVATED. HR IMPROVING; HR 115-120. SITTER AT BEDSIDE.
--- NOTE | 2022-12-23 04:32 | NUR ---
PATIENT REQUEST PRN VALIUM. CIWA 9. PO VALIUM PROVIDED. PATIENT CONTINUES TO BE 1:1 WITH SITTER.
--- NOTE | 2022-12-23 06:29 | NUR ---
PATIENT RESTING IN BED. PATIENT APPEARS CALM. CIWA 9. IV FLUIDS PER ORDER. SITTER AT BEDSIDE. VS STABLE.
--- NOTE | 2022-12-23 06:31 | NUR ---
new bag iv fluids hung and infusing as directed, iv sites x2 wnl. primary rn aware. this rn remains in room for 1:1.
--- NOTE | 2022-12-23 07:30 | NUR ---
REPORT RECEIVED FROM GINNY RAE. PT RESTING IN BED, DIRECT OBSERVATION BEING PROVIDED BY [facility]BC RN AT THIS TIME.
--- NOTE | 2022-12-23 08:15 | NUR ---
IN TO CHECK ON PT, PT HAS BEEN UNDER DIRECT OBSERVATION BY [facility] RN WITH 15MINUTES CHARTING FOR SUICIDAL PRECAUTIONS. ASSESSMENT DONE, PT GIVEN 10MG IV VALIUM SCHEDULED. CIWA 13 AT THIS TIME, PT C/O HEADACHE AND NAUSEA AND TREMORS. STATES "MY TREMORS ARE REALLY BAD RIGHT NOW". PRN COMPAZINE GIVEN. PT IS CALM AND APPROPRIATE WITH ANSWERING QUESTIONS, DOES SEEM TO BE SLIGHTLY ANXIOUS REGARDING PLAN OF CARE, DISCUSSED PLAN FOR CCS TO COME AND EVALUATE HER AND COME UP WITH A SAFETY PLAN AND SHE IS AGREEABLE. DR SCHAEFER THEN IN TO SEE PT AND ASKED HER QUESTIONS REGARDING SUICIDAL IDEATIONS AND SHE DENIES BEING SUICIDAL AT THIS TIME. PT THEN LIES BACK TO REST AND TRY TO SLEEP.
--- NOTE | 2022-12-23 08:17 | NUR ---
CONTACTED CCS TO GET UPDATE ON WHEN THEY ARE COMING TO EVALUATE HER.
--- NOTE | 2022-12-23 08:51 | NUR ---
SPOKE WITH JUICE RAE, SHE STATES THE PATIENT IS CLEAR THIS AM, BUT NOT FEELING WELL AND HAS JUST HAD PRN VALIUM. PER JUICE RAE SHE HAS CONTACTED TO [facility] CRISIS LINE AND THEY ARE AWARE OF THE NEED TO SEE THE PATIENT. WILL CHECK BACK WITH THE PATIENT LATER TODAY FOR FURTHER CASE MANAGEMENT NEEDS.
--- NOTE | 2022-12-23 09:45 | NUR ---
IN TO GIVE AM MEDS, PT WAKENS EASILY, MEDICATIONS EXPLAINED TO PT AND SHE IS AGREEABLE TO THEM.
--- NOTE | 2022-12-23 10:16 | NUR ---
PT RESTING IN BED, HAS JUST GOTTEN BACK FROM USING BSC WITH F[facility] AND STATES SHE WAS SLIGHTLY SHORT OF BREATH WITH THE ACTIVITY BUT IS RECOVERING NOW THAT SHE IS LYING DOWN. HR WAS UP TO 120'S WITH ACTIVITY, NOW DOWN TO 110. DENIES PAIN AT THIS TIME.
--- NOTE | 2022-12-23 11:15 | NUR ---
IN TO SIT WITH PT FOR DIRECT OBS, PT RESTING WITH EYES CLOSED, RRR, RESTING HR 90-100'S.
--- NOTE | 2022-12-23 12:07 | NUR ---
CCS IN TALKING WITH PT TO FORM UP WITH A SAFETY PLAN.
--- NOTE | 2022-12-23 12:08 | NUR ---
Med rec completed.
--- NOTE | 2022-12-23 12:20 | NUR ---
PT DONE TALKING WITH CCS WORKER, VALIUM PRN GIVEN FOR ANXIETY. PT ALSO C/O PAIN IN EPIGASTRIC AREA 6/10 DILAUDID GIVEN PRN FOR PAIN. PT THEN LIES BACK TO GO TO SLEEP.
--- NOTE | 2022-12-23 13:30 | NUR ---
AFTER VALIUM AND DILAUDID GIVEN PT HAS BEEN LYING BACK WITH HR 90-100'S, APPEARS RESTFUL, RR 20 WITH SPO2 94% ON 2L/O2.
--- NOTE | 2022-12-23 14:30 | NUR ---
FIRER TUNNEL KILN IN TO GIVE SCHEDULED VALIUM, PT AWAKENS EASILY, STATES SHE IS HAVING ANXIETY AND NIGHTMARES. 10MG IV VALIUM GIVEN PER EMAR. PT CONT TO REST IN BED WITH HR 90-100'S.
--- NOTE | 2022-12-23 14:48 | NUR ---
REPORT RECEIVED FROM BUTCH BOSE. THIS RN ASSUMING CARE OF PT. PT WATCHING TV. PT DENIES HAEADCHE. MODERATE TREMORS CONTINUE. PT REPORTS NAUSEA, DECLINES NAUSEA MEDICATIONS, NO EMESIS NOTED. PALMS MILDY MOIST. PT REPORTS ANXIETY IS IMPROVING, CONTINUES TO REPORT NIGHTMARES. CIWA OF 9. ICE CHIPS PROVIDED. PT DENIES ADDITIONAL REQUESTS OR COMPLAINTS. CALL LIGHT WITHIN REACH. BED RAILS UP.
--- NOTE | 2022-12-23 15:20 | NUR ---
THIS RN TO ROOM TO CHECK ON PT. PT CONTINUES WATCHING TV AND REPORTS FEELING COMFORTABLE. SEIZURES PADS PLACED. EDUCATION DONE WITH PT. NO ADDITIONAL REQUESTS OR COMPLAINTS. CALL LIGHT WITHIN REACH. BED RAILS UP.
--- NOTE | 2022-12-23 15:53 | NUR ---
AFTERNOON ASSESSMENT DUE. PT RESTING ON RIGHT SIDE WITH EYES CLOSED. PT AWAKENS TO VOICE AND MOVEMENT IN THE ROOM. PT DENIES PAIN AND NAUSEA INCLUDING PAIN IN ABDOMEN AND HEADACHE. PALMS NO LONGER MOIST AND PT STATES "I'M NOT SWEATY LIKE BEFORE." PT DISOREINTED TO EXACT DATE AND MONTH BUT KNOWS YEAR. PT OTHERWISE OREINTED. PT REORTS MILD ANXIETY BUT STATES SHE IS ABLE TO SLEEP, REPORTS WEIRD DREAMS TAHT "NOT YET NIGHTMARES, JUST WEIRD." AILIN MENTOR ARRIVED TO TALK WITH PT. PT VISITING WITH MENTOR. PT REMAINS ON 2L O2 BY GA TO MAINTAIN OXGYEN SATURATION ABOVE 94%. LUNG SOUNDS CLEAR. SINUS RYTHEM NOTED ON MONITOR WITH HEART RATE 90-110. PT REPORTS HER LEGS FEEL SWOLLEN WHICH SHE STATES "HAPPENS A LOT, WORSE WHEN I'M WORKING." PT DECLINES SCD'S STATING THEY MAKE HER ANXIOUS. PT DENIES ADDITONAL REQUESTS OR COMPLAINTS. CALL LIGHT WITHIN REACH. BED RAILS UP. SEIZURE PADS REMAIN IN PLACE.
--- NOTE | 2022-12-23 16:35 | NUR ---
PT HERE FOR ETOH WITHDRAWL AND PANCREATITIS. PT REMAINS ON BED REST WITH 1 PERSON ASSIST TO BEDSIDE COMODE FOR LINE AND TUBE MANAGEMENT THIS SHIFT. PT REMAINS NPO WITH ICE CHIPS FOR COMFORT, TOLERATING WELL WITH OCCATIONAL NAUSEA. CIWA SCORES 8-16, SCHEDULED AND PRN MEDICATION GIVEN WITH GOOD EFFECT. TREMORS, HEADACHES, NIGHTMARES, SWEATY PALMS AND ANXEITY NOTED. PT OREINTED TO ALL BUT EXACT DATE/MONTH. PT CLEARED BY CCS AND IS NO LONGER ON 1:1 OBSERVATION STATING SHE IS NO LONGER SUICIDAL. PRN PAIN MEDICATION GIVEN FOR HEADACHES AND EPIGASTRIC PAIN THIS SHIFT. HEART TONES REGULAR WITH OCCATIONAL TACHYCARDIA SEEN. PT PLACED ON 2L O2 BY NV TO MAINTAIN OXGYEN SATURATIONS ABOVE 94%. PANCYTOPENIA CONTINUES. MONITORING LABS. SEIZURE PADS IN PLACE FOR SAFETY. PT HAS YET TO USE CALL LIGHT. PURPOSFUL HOURLY ROUNDING COMPLETED. PT VOIDING QUANITTY SUFFICIENT, LARGE AMOUNTS AT ONE TIME.
--- NOTE | 2022-12-23 16:41 | NUR ---
THIS RN TO ROOM TO CHECK ON PT. PT RESTING ON RIGHT SIDE WITH EYES CLOSED. RESPIRATIONS EVEN AND UNLABORED, RR OF 17. PT BED RAILS UP. CALL LIGHT WITHIN REACH. SEIZURE PADS IN PLACE. PT ALLOWED TO REST.
--- NOTE | 2022-12-23 17:20 | NUR ---
THIS RN TO ROOM TO CHECK ON PT. PT CONTINUES RESTING WITH EYES CLOSED ON RIGHT SIDE. RESPIRATIONS EVEN AND UNLABORED. HEART RATE IN SINUS RYTHEM WITH RATE IN THE 90'S. 2L O2 BY NC CONTINUES TO MAINTAIN OXGYEN SATURATIONS ABOVE 94%. BED RAILS UP. CALL LIGHT WITHIN REACH. PT ALLOWED TO REST.
--- NOTE | 2022-12-23 17:49 | NUR ---
PT CALL LIGHT ON. PT REQUESTS ASSISTANCE UP TO COMODE. PT REPORTS ANXIETY AND 6/10 HEADACHE. TREMORS PRESENT AND PTS REPORTS "ITCHING, ESPICALLY IN MY LEGS." CIWA SCORE OF 14, PRN MEDICATION GIVEN. STAND BY ASSIST UP TO BEDSIDE COMODE. PT VOIDS 400ML ORANGE URINE, MICHAEL CARE PER PT. PT REMAINS ON 2L O2 BY NC WITH OXGYEN SATURATION OF 95%. HEAD OF BED AT 37 DEGREES. NO ADDITIONAL REQUESTS OR COMPLAINTS. CALL LIGHT WITHIN REACH. SEIZURE PADS IN PLACE. BED RAILS UP.
--- NOTE | 2022-12-23 18:39 | NUR ---
THIS RN TO ROOM TO CHECK ON PT. PT RESTING IN BED, DOZING ON AND OFF AND WATCHING TV. PT REPORTS FEELING "BETTER, MORE RELAXED." CIWA SCORE NOW 9. PT REPORTS HEADACHE HAS IMPRVOED NOW 11/07. PT DENIES EPIGASTRIC PAIN. VITAL SIGNS STABLE. PT WEANTED TO ROOM AIR, MAINTAINING OXGYEN SATURATIONS ABOVE 92%. PT DENIES ADDITIONAL REQUESTS OR COMPLAINTS. CALL LIGHT WITHIN REACH. BED RAILS UP. SEIZURE PADS IN PLACE.
--- NOTE | 2022-12-23 19:45 | NUR ---
PT REPORTS HEAD ACHE AND ABD PAIN, DILAUDID 1MG IV ADMINISTERED. PT HAS NO OTHER COMPLAINTS.
--- NOTE | 2022-12-23 20:30 | NUR ---
PT RESTING IN BED SLEEPING, OXYGEN SATURATION DROPPED TO 85%, PT PLACED BACK TO 2L OXYMASK PER HER PREFERENCE. NO OTHER DISTRESS NOTED
--- NOTE | 2022-12-23 21:50 | NUR ---
PT UNSURE OF DATE, ORIENTED TO PERSON/PLACE/AND EVENT. SHE SAID WHEN SHE FALLS ASLEEP SHE FORGETS WHERE SHE IS AND STARTLES AWAKE WHEN SHE STAFF IN HER ROOM
--- NOTE | 2022-12-23 22:40 | NUR ---
PT RESTING IN BED NO DISTRESS NOTED, ALERT OT RN AT BEDSIDE, NO DISTRESS NOTED, PT HAD NO COMPLAINTS, CIWA 6
--- NOTE | 2022-12-23 23:35 | NUR ---
PT RESTING IN BED, ALERT TO RN ROUNDING, SHE REPORTS NO NEEDS AT THIS TIME, NO REQUESTS.
[2022-12-24] VITALS (14 sets, daily range): BP systolic 106–139; BP diastolic 74–98
--- NOTE | 2022-12-24 01:23 | NUR ---
PT ALERT AND ORIENTED, SHE ASKED IF SHE COULD HAVE HER CELL PHONE. PT ASKED IF SHE FEELS SAFE OR HAS ANY FEELINGS OF HURTING HERSELF, SHE SAID "NO", NOTED PT'S CRISIS PLAN INCLUDES SHOPPING ONLINE. PT ALLOWED TO HAVE HER PHONE AT THIS TIME. PT IS DIRECTLY ACROSS AND IN VIEW OF NURSES STATION FOR CLOSE MONITORING.
--- NOTE | 2022-12-24 01:53 | NUR ---
PT USED CALL LIGHT TO REQUEST TO USE THE BATHROOM, SHE ASKED TO BE ABLE TO WALK INTO BATHROOM RATHER THAN USE BEDSIDE COMMODE, THIS RN SAID "LETS STAND AT BEDSIDE AND SEE HOW STEADY YOU ARE AT THIS TIME, IF YOU ARE STEADY TO WALK THEN WE CAN GO INTO BATHROOM" PT AGREED, PT STOOD WITH GOOD STRENGTH, SHE IS NOTED BE HAVE SLOW AND SOMEWHAT DISCORDINATED WITH AMBULATION. VOIDED AND HAD BM IN BATHROOM
--- NOTE | 2022-12-24 03:41 | NUR ---
PT COULD BE HEARD MAKING WRECHING NOISES FROM NURSES STATION. THIS RN INTO ROOM PT SAID SHE JUST WOKE UP WITH NAUSEA AND PAIN. PT ADMINISTERED ZOFRAN AND DILAUDID PRN AT THIS TIME. PT THEN SAID SHE FEELS LIKE SHE NEEDS TO HAVE A BOWEL MOVEMENT, PT INSISTED ON USE OF BATHROOM, AFTER DISCUSSION, PT STOOD AT BEDSIDE WITH GOOD STRENGTH, SHE HAS NOTED DISCORDINATION BLE, ONE PERSON CONTACT ASSIST TO BATHROOM, PT HAD BM AND VOIDED MISSING THE HAT, PT SAID HER NAUSEA WAS IMPROVED, SHE IS NOTED TO HAVE INCREASE HEART RATE TO 135/MIN NOT SUSTAINED, WITH ACTIVITY AND NAUSEA/WRECHING. PT NOTED TO HAVE INCREASED CIWA TO 8 AT THIS TIME.
--- NOTE | 2022-12-24 03:56 | NUR ---
PRN VALIUM 5MG IV FOR CIWA OF 9. PT ALSO HEART RATE GREATER THAN 100/MIN AND RESP RATE GREATER THAN 25/MIN, INCREASED TREMORS AND NAUSEA/WRECHING. ZOFRAN AND DILAUDID ALSO ADMINISTERED.
--- NOTE | 2022-12-24 06:05 | NUR ---
PT SITTING UP IN BED, SHE IS FIGITING WITH IV LINES AND MONITOR CORDS, SHE REPORTS THE IV PUMP IS MAKING WIERD NOISES, IT IS MAKING NORMAL PUMPING SOUND, PT IS ALERT AND ORIENTED TO PLACE/TIME/EVENT/SELF AND CARE PLAN. CIWA 9, SCHEDULED VALIUM ADMINISTERED AT THIS TIME.
--- NOTE | 2022-12-24 06:38 | NUR ---
PT AMBULATED TO BATHROOM VOIDED 600ML URINE WITH ORANGE TINT. TOLERATED ACTIVITY WITH NOTED DISCORDINATION OF BLE, NOT NEW, PT STANDBY ASSIST TO BATHROOM.
--- NOTE | 2022-12-24 06:42 | NUR ---
NOTIFIED OF CRITICAL LAB VALUE PLTS 39 AT THIS TIME.
--- NOTE | 2022-12-24 07:45 | NUR ---
RECEIVED REPORT FROM [facility] NURSE. PT IS A/O, RESPIRATIONS EVEN AND REGULAR SITTING UP IN BED.
--- NOTE | 2022-12-24 09:00 | NUR ---
PT ASSESSMENT AND MEDICATION ADMINISTRATION COMPLETED. PT CIWA SCORE 10. PT HAS BEEN UNABLE TO REACH STATING HER ANXIETY HAS INCREASED. PT WAS REPORTING SOUZA RATING 6/10. PRN DILAUDID GIVEN.
--- NOTE | 2022-12-24 13:23 | NUR ---
PATIENT NOTED TO BE UP IN BATHROOM AFTER DISCONNECTING HERSELF FROM MONITOR AND IV. PT WAS HIDING IN THE BATHROOM WITH THE LIGHTS OFF AND WAS TEARFUL WHEN THIS RN AND ANOTHER FOUND PATIENT. PATIENT STATES, "I WAS HIDING, I THOUGHT I HEARD A LOUD BANG." HELPED PATIENT BACK TO BED AND APPLIED BACK TO MONITOR. SCHEDULED 1400 VALIUM GIVEN. CCS NOW IN ROOM AND CHECKING IN ON PATIENT. HR UP TO 120s WHIEL UP, BUT NOW 110s AFTER VALIUM GIVEN.
--- NOTE | 2022-12-24 15:36 | NUR ---
PT ASSESSMENT AND MEDICATION ADMINISTRATION COMPLETED. PT CIWA 22. VALIUM GIVEN. HAS BEEN NOTIFIED OF INCREASING CIWA. JUST LEFT BEDSIDE. PT C/O CONTINUED SOUZA.
--- NOTE | 2022-12-24 18:16 | NUR ---
ASSISTED PT UP TO RESTROOM. PT CIWA 7 ATT. IV FLUIDS RUNNING. CALL LIGHT WITHIN REACH.
--- NOTE | 2022-12-24 19:30 | NUR ---
PT SITTING UP IN BED ON CELL PHONE SHE REPORTS CONCERN ABOUT SOUZA, CALLED IN REGARDS TO POSSIBLE NEW ORDER FOR HEADACHE PAIN, SHE ONLY HAS DILAUDID FOR PAIN. SAID OK TO GIVE DILAUDID FOR SOUZA PAIN. PT CIWA 5 AT THIS TIME. WILL MONITOR CLOSE FOR FURTHER NEEDS
--- NOTE | 2022-12-24 21:31 | NUR ---
PATIENT IS PRETTY TREMULOUS WHILE WALKING TO THE BATHROOM. SHE IS PARANOID AND SEEING THINGS. HR IS 110S. SHE IS VERY IMPULSIVE WELL. PRN MEDICATION GIVEN
--- NOTE | 2022-12-24 23:02 | NUR ---
CALLED TO DISCUSS PT NEED FOR FREQUEST PRN MEDICATIONS, AND REMAINING CIWA OF 15 AND GREATER. GAVE ORDER TO RESTART DRIP ORDER OF PRECEDEX AT THIS TIME
--- NOTE | 2022-12-24 23:50 | NUR ---
PRECEDEX DRIP NOW INFUSING, PT IS -1, ALERT TO RN AT BEDSIDE BUT DROWSY.
[2022-12-25] VITALS (19 sets, daily range): BP systolic 89–134; BP diastolic 47–98
--- NOTE | 2022-12-25 01:22 | NUR ---
PT AWAKE MOVING AROUND/REPOSITIONING IN BED, SHE HAS HER OXYGEN MASKED PULLED DOWN, THIS RN INTO TALK WITH PT SHE HAS HER CELL PHONE IN HER HAND. PT REORIENTED AND ASSURED THAT SHE IS SAFE, NO NEW CONCERNS AT THIS TIME. RASS OF +1 AT THIS TIME.
--- NOTE | 2022-12-25 01:47 | NUR ---
PT RESTING QUIETLY IN BED, EYES CLOSED, SNORING NOTED, RESP RATE 15/MIN. NO DISTRESS AT THIS TIME.
--- NOTE | 2022-12-25 02:56 | NUR ---
PT ALERT TO STAFF AT BESIDE, RASS +1, THEN BACK TO SLEEP, SNORING NOTED. V/S STABLE.
--- NOTE | 2022-12-25 03:39 | NUR ---
PT ALERT ATTEMPTING TO GET OUT OF BED, THIS RN INTO PT ROOM, ASKED PT "WHERE ARE YOU GOING JONA?" PT SAID "I NEED TO GO TO THE BATHROOM" THIS RN ASSISTED PT OUT OF BED TO BATHROOM SHE HAS GOOD STRENGHT, UNSTEADY GAIT, ONE PERSON CONTACT ASSIST. PT VOIDED 600ML URINE. BACK TO BED, PT ASKED FOR SOMETHING TO DRINK, PROVIDED APPLE CLEAR ENSURE, PT SAID SHE HAD THAT EARLIER AND SHE LIKED IT, PT THEN SAID "MY [place] NEIGHBORS ARE GOING TO JUST LOVE ME, WITH ALL THIS NOISE" PT REORIENTED TO PLACE/TIME AND EVENT.
--- NOTE | 2022-12-25 05:04 | NUR ---
PT ALERT TO RN AT BEDSIDE WITH FORESTRY BIOLOGY SPECIALIST FOR AM BLOOD LAB, PT SAID "IS IT TIME FOR WORK ALREADY" THIS RN REORIENTED ON TIME/PLACE/EVENT. PT SAID "OH, THAT'S RIGHT" PT DRANK SOME DIET SPRITE AND THEN REPOSITIONED IN BED AND CLOSED HER EYES.
--- NOTE | 2022-12-25 07:30 | NUR ---
SHIFT REPORT RECEIVED FROM BUTCH HUTTON. PT ASLEEP AT THIS TIME, NO APPARENT DISTRESS. PRECEDEX @ 0.4MCG/KG/HR, IV SITES APPEAR INTACT. SEIZURE PADS ON BED AND BED ALARM IS ON FOR SAFETY.
--- NOTE | 2022-12-25 08:40 | NUR ---
SHIFT ASSESSMENT COMPLETED- SEE DOCUMENTATION. MORNING MEDS GIVEN PER EMAR. CIWA 6. PT UP TO BATHROOM WITH SBA, UNMEASURED VOID. PT NOW BACK TO BED. PT REPORTS FEELING HUNGRY, OK TO ADVANCE DIET TOLERATED PER DR. SCHAEFER. PT EATING BREAKFAST NOW. BED ALARM ON FOR SAFETY.
--- NOTE | 2022-12-25 09:15 | NUR ---
NEW PRECEDEX BOTTLE STARTED, TITRATED DOSE TO 0.2MCG/KG/HR.
--- NOTE | 2022-12-25 10:00 | NUR ---
PT HAS FINISHED WITH BREAKFAST. UP TO BATHROOM WITH SBA, PT USED BATH WIPES TO CLEAN SELF AND CHANGED INTO GOWN AND SCRUB PANTS FROM PAPER SCRUBS. NEW DRAW SHEET AND CHUX PLACED ON BED. 2L O2 VIA NC IN PLACE. BED ALARM ON.
--- NOTE | 2022-12-25 11:42 | NUR ---
DR. SCHAEFER UPDATED ON PT'S MAGNESIUM OF 1.3, VORB FOR 4GM MAGNESIUM SULFATE INFUSION.
--- NOTE | 2022-12-25 12:30 | NUR ---
PT SITTING UP IN BED, IN TO ASSIST HER. PT CONFUSED AND ANXIOUS, RE-ORIENTED HER. PT UP TO BR WITH 1-PA, PT VOIDED AND THEN RETURNED TO BED. CIWA 11, PO VALIUM GIVEN. PT ALSO REPORTING HEADACHE AND LEG PAIN, PRN DILAUDID GIVEN. ASSESSMENT OTHERWISE UNCHANGED. DRESSING TO LEFT AC IV CHANGED. BED ALARM ON FORA SAFETY AND 2L O2 VIA NC IN PLACE.
--- NOTE | 2022-12-25 13:30 | NUR ---
SPO2 DOWN TO 85% WHILE SLEEPING. REPOSITIONED NC AND INCREASED TO 4L.
--- NOTE | 2022-12-25 13:56 | NUR ---
PT REMOVED NC AND SPO2 DROPPED TO 84%. SWITCHED TO OXYMASK AND TITRATED BACK TO 2L.
--- NOTE | 2022-12-25 15:07 | NUR ---
PT'S PHONE ALARM WENT OFF, STARTLED HER AWAKE. PT STATES SHE IS CONFUSED, ASKS WHAT DAY IT IS AND IF SHE'S STILL AT [facility]. PT RE-ORIENTED AND QUICKLY FALLS BACK ASLEEP. BED ALARM REMAINS ON FOR SAFETY.
--- NOTE | 2022-12-25 16:07 | NUR ---
PT CONTINUES TO SLEEP, NO APPARENT DISTRESS. VSS. WILL CONTINUE TO MONITOR.
--- NOTE | 2022-12-25 17:15 | NUR ---
PT UP TO BATHROOM TO VOID, NOW BACK TO BED. PT REPORTING HEADACHE, PRN DILAUDID GIVEN. CIWA:11, PO VALIUM GIVEN. PRECEDEX OFF AT THIS TIME PER DR. BARAJAS. ASSESSMENT COMPLETED. PT VISITING WITH SPOUSE. REQUESTS SNACK, CRACKERS AND PUDDING PROVIDED UNTIL DINNER GETS HERE. BED ALARM ON FOR SAFETY.
--- NOTE | 2022-12-25 17:40 | NUR ---
PT EATING DINNER.
--- NOTE | 2022-12-25 18:26 | NUR ---
PT FINISHED WITH DINNER. CPOX REPLACED TO PT WITH 89% OXGYEN SATURATION NOTED. PT PLACED BACK ON OXY MASK 2L O2 WITH OXGYEN SATURATION CLIMBING TO 98%. PT VISITING WITH SIGNIFICANT OTHER AND DOZING ON AND OFF. PT DENIES ADDITIONAL REQEUSTS OR COMPLAINTS. WAS ABLE TO EAT ~70% OF MEAL. PTS PRIMARY RN UPDATED. NO ADDITIONAL REQUESTS OR COMPLAINTS. CALL LIGHT WITHIN REACH. BED RAILS UP.
--- NOTE | 2022-12-25 19:47 | NUR ---
SHIFT REPORT COMPLETE, ROUNDED ON PT SHE IS ALERT, REPORTS GOOD DAY, HAPPY TO HAVE ADVANCED DIET.
--- NOTE | 2022-12-25 19:52 | NUR ---
PT ASKING FOR MORE FOOD, "REAL FOOD, NOT SNACKS" WILL PROVIDE LUNCH BOX
--- NOTE | 2022-12-25 20:15 | NUR ---
PT ATTEMPTING TO GET OUT OF BED, THIS RN INTO ROOM TO ASSESS, PT REPORTS SHE HAS HAD AN ACCIDENT IN BED, SHE SAID "I WAS SLEEPING AND WOKE, THOUGHT I JUST NEEDED TO FART" PT ASSISTED OUT OF BED TO BATHROOM, CLEANED PT AND CHANGED OUT BED LINENS. PT NOW HAS PULL UP DEPENDS, SHE ASKED FOR. PT AMBULATED WITH ONE PERSON CONTACT ASSIST, SHE HAS GOOD STRENGTH, STILL UNSTEADY GAIT. PT IS ALERT AND ORIETNED TO PLACE AND EVENT AT THIS TIME.
--- NOTE | 2022-12-25 21:30 | NUR ---
PT UP TO BATHROOM TO HAVE BM AND VOID, SHE SAID SHE IS FEELING VERY ANXIOUS, NOTED INCREASE TREMORS SHE SAID SHE IS REALLY WANTS A GOOD NIGHT SLEEP. CIWA 9 PRN VALIUM WELL VISTRIL ADMINISTERED.
--- NOTE | 2022-12-26 00:11 | NUR ---
PT RESTING QUIETLY IN BED, EYES CLOSED, ALERT TO NAME, ON ROOM AIR 94% OXYGEN SATURATION. SHE HAS NO NEW COMPLAINTS, CIWA 5.
[2022-12-26 00:13] VITALS: BP 99/69
--- NOTE | 2022-12-26 01:27 | NUR ---
PT CALLED TO NURSES STATION, FOR ASSISTANCE TO BATHROOM, SHE HAD BM AND VOIDED 650ML. PT STRONG STRENGTH, PT UNSTEADY GAIT THAT IS IMPROVING. PT ALERT AND APPROPRIATE IN CONVERSATION, CIWA 5
--- NOTE | 2022-12-26 04:05 | NUR ---
PT NOTED TO BE MOVING AROUND IN BED, THIS RN INTO ROOM, PT SAID SHE NEEDED TO GET UP TO BATHROOM, PT AMBULATED TO BATHROOM 1P CONTACT ASSIST, UNSTEADY IMPROVING, GOOD STRENGTH, PT ALERT AND ORIENTED, SHE REPORTS SHE IS HUNGRY, YOGURT PROVIDED. WARM BLANKET PROVIDED, CIWA 5. NO NEW CONCERNS
[2022-12-26 04:13] VITALS: BP 129/95
--- NOTE | 2022-12-26 05:39 | NUR ---
PT ALERT AND ORIETNED REPORTING PAIN IN LEGS 03/09, 10MG PO OXYCODONE ADMINISTERED AT THIS TIME. PT SITTING UP WATCHING TV.
--- NOTE | 2022-12-26 05:40 | NUR ---
PT UP TO BATHROOM SHE FEELS VERY ANXIOUS, TREMULOUS, RESTLESS AND FIGITING. PRN ADMINISTERED.
[2022-12-26 05:53] VITALS: BP 102/65
--- NOTE | 2022-12-26 06:21 | NUR ---
UPDATED IN REGARDS TO PT NIGHT AND THAT THIS AM PRN MEDS ADMINISTERED AND PT HR ELEVATED HIGH 157/MIN WITH AMBULATION AND 125/MIN AT THIS TIME AT REST. NO NEW ORDERS AT THIS TIME, TO CONTINUE TO MONITOR AT THIS TIME.
[2022-12-26 08:02] VITALS: BP 110/75
--- NOTE | 2022-12-26 08:02 | NUR ---
PT SITTING UP IN BED. PT FINISHED W MEAL TRAY. VITALS AND IS AND OS COMPLETE.PT PROVIDED MORE CLEAR ENSURE PER PT REQ. PT HAS NO NEEDS AT THIS TIME. CALL LIGHT WITHIN REACH
[2022-12-26 09:20] VITALS: BP 117/82
--- NOTE | 2022-12-26 09:20 | NUR ---
ASSESSMENT COMPLETED, SEE DOCUMENTATION. PT'S NEURO STATUS IS BACK TO BASELINE, PT REPORTS FEELING GOOD PHYSICALLY AND EMOTIONALLY AND IS READY TO GO HOME. PT HAS FINISHED BREAKFAST, MORNING MEDS GIVEN PER EMAR.
--- NOTE | 2022-12-26 09:57 | NUR ---
DR. BARAJAS IN TO ASSESS PT AND DISCUSS POC.
[2022-12-26] MEDS ORDERED: CEPHALEXIN500 MG PO (10:04)
[2022-12-26 10:18] VITALS: BP 120/91
--- NOTE | 2022-12-26 11:00 | NUR ---
[facility] HAS BEEN IN TO SEE PT PRIOR TO D/C, MATY FROM PHARMACY IN TO REVIEW MEDS.
--- NOTE | 2022-12-26 11:10 | NUR ---
PT D/C'D TO HOME AT THIS TIME. DISCHARGE PACKET REVIEWED AND COPY PROVIDED. IV SITES X2 D/C'D WNL, AFTERCARE DISCUSSED. PT HAS ALL BELONGINGS WITH HER, ESCORTED TO FRONT IN WHEELCHAIR BY ASSOCIATE PROFESSOR OF THEATRE, [employer] WAITING FOR PT TO TAKE HER HOME.
== END 2022-12-26 11:10 | disposition home or self-care (01) | DRG 439 ==
LOC: ED 14:08 → CCU 18:12
PROVIDERS: ADMIT Internal Medicine; ATTEND Internal Medicine
PROC: HZ2ZZZZ Detoxification Services for Substance Abuse Treatment (ICD-10-PCS; principal; 2022-12-22)
DX: K85.20 Alcohol induced acute pancreatitis without necrosis or infection (principal); D61.818 Other pancytopenia; F10.239 Alcohol dependence with withdrawal, unspecified; N39.0 Urinary tract infection, site not specified; R45.851 Suicidal ideations; K76.9 Liver disease, unspecified; K70.10 Alcoholic hepatitis without ascites; F32.A Depression, unspecified; E83.42 Hypomagnesemia; I10 Essential (primary) hypertension; R74.01 Elevation of levels of liver transaminase levels; F41.9 Anxiety disorder, unspecified; G40.909 Epilepsy, unspecified, not intractable, without status epilepticus; E03.9 Hypothyroidism, unspecified; K72.90 Hepatic failure, unspecified without coma; F17.200 Nicotine dependence, unspecified, uncomplicated; Z71.41 Alcohol abuse counseling and surveillance of alcoholic; Z88.5 Allergy status to narcotic agent; Z91.018 Allergy to other foods; Z79.890 Hormone replacement therapy; Z98.890 Other specified postprocedural states; Z98.84 Bariatric surgery status; Z90.49 Acquired absence of other specified parts of digestive tract; Z93.1 Gastrostomy status; Z79.899 Other long term (current) drug therapy
CPT/HCPCS: 36415; 80053; 81001; 83690; 83735; 84703; 85025; 85060; 85610; 85730; 87088; 93005; 93010; A9270; C9113; G0480; J0696; J0780; J1170; J1953; J2060; J2405; J3360; J3411; J3475; J7030; J7121; Q0177

== ENCOUNTER 2023-06-10 21:13 | Emergency (ER) | payer OTHER ==
[~2023-06-10] VITALS: Ht 167.6 cm; Wt 104.6 kg
[~2023-06-10 21:13] MED LIST changes: +CEPHALEXIN500 MG PO; +CIPRO500 MG PO; +HYDROXYZINE PAM50 MG PO; +ONDANSETRON HCL4 MG PO; +PROPRANOLOL HCL10 MG PO; +TRAZODONE HCL50 MG PO
[2023-06-10 21:27] LABS: EOSINOPHILS 5.7 % (0-6); HEMATOCRIT 38.1 % (35.0-50.0); LYMPHOCYTES 64.8 % (24-44); MCH 32.8 (27-36); MCHC 34.1 g/dl (30-36); MCV 96.2 fl (81-99); MONOCYTES 3.9 % (0-12); NEUTROPHILS 24.6 % (39-80); PLATELET COUNT 178 K/uL (140-440); RBC 3.96 M/ul (4.3-5.7); RDW 14.3 (10.5-15.0)
[2023-06-10 21:53] LABS: ACETAMINOPHEN 0 ug/mL (10-30); ALBUMIN 4.1 g/dL (3.4-5.0); ALBUMIN/GLOBULIN RATIO 0.95 (1.1-2.4); ALKALINE PHOSPHATASE 196 U/L (46-116); ALT (SGPT) 58 U/L (14-59); ANION GAP 17.9 (7-21); AST (SGOT) 46 U/L (15-37); BILIRUBIN, TOTAL 0.3 ng/dL (0.2-1.0); BUN/CREATININE RATIO 16.43 (6.0-28.6); CALCIUM 8.3 mg/dL (8.5-10.1); CARBON DIOXIDE 24 mmol/L (21-32); CHLORIDE 107 mmol/L (98-107); CREATININE, SERUM 0.73 mg/dL (0.55-1.02); GLOMERULAR FILTRATION RATE,EST 108 mL/min (>60); POTASSIUM 3.9 mmol/L (3.5-5.1); PROTEIN, TOTAL 8.4 g/dL (6.4-8.2); SALICYLATE 1.9 mg/dL (2.8-20.0); UREA NITROGEN 12 mg/dL (7-18)
[2023-06-10 21:54] LABS: ALCOHOL, MEDICAL 458 ng/dL (<3)
[2023-06-10 22:18] LABS: BILIRUBIN, URINE NEGATIVE (negative); BLOOD/HGB, URINE NEGATIVE (Negative); KETONE, URINE NEGATIVE (Negative); LEUK ESTERASE, URINE NEGATIVE (negative); NITRITE, URINE NEGATIVE (negative)
[2023-06-10 22:32] LABS: AMPHETAMINES, URINE NEGATIVE (NEGATIVE); BARBITURATES, URINE NEGATIVE (NEGATIVE); BENZODIAZEPINE, URINE NEGATIVE (NEGATIVE); BUPRENORPHINE, URINE NEGATIVE (NEGATIVE); CANNABINOID, URINE NEGATIVE (NEGATIVE); COCAINE, URINE NEGATIVE (NEGATIVE); ECSTASY, URINE NEGATIVE (NEGATIVE); FENTANYL, URINE NEGATIVE (NEGATIVE); METHADONE, URINE NEGATIVE (NEGATIVE); OPIATES, URINE NEGATIVE (NEGATIVE); OXYCODONE, URINE NEGATIVE (NEGATIVE); PHENCYCLIDINE, URINE NEGATIVE (NEGATIVE)
[2023-06-10] MEDS ORDERED: CHLORDIAZEPOXID25 MG PO (22:48)
[2023-06-10 23:45] VITALS: BP 117/79
== END 2023-06-10 23:48 | disposition home or self-care (01) ==
LOC: ED 21:13
PROVIDERS: Internal Medicine
DX: F10.129 Alcohol abuse with intoxication, unspecified (principal); S00.511A Abrasion of lip, initial encounter; I10 Essential (primary) hypertension; F17.200 Nicotine dependence, unspecified, uncomplicated; W19.XXXA Unspecified fall, initial encounter; Y90.8 Blood alcohol level of 240 mg/100 ml or more; Z88.5 Allergy status to narcotic agent; Z91.018 Allergy to other foods; Z79.899 Other long term (current) drug therapy; Z79.890 Hormone replacement therapy
CPT/HCPCS: 36415; 70450; 70486; 71045; 72125; 80053; 80307; 81003; 83690; 84443; 84703; 85025; 85060; G0480; J3411; J7030; J7121